=== PATIENT | male | born 1975 | race Caucasian/White ===

== ENCOUNTER 2021-06-24 21:07 | Inpatient (IN) ==
[2021-06-25] MEDS ORDERED: Lactated Ringers 1000 ml BAG 1,000 ML IV ONE ×2 (00:42→03:18)
[2021-06-25] MEDS ORDERED: Morphine 4 MG/ML VIAL (1 ml) IV ONE ×2 (01:12→02:56)
[2021-06-25] MEDS ORDERED: Ondansetron 4 mg VIAL 2 MG/ML 2 ml VIAL IV ONE (01:12)
[2021-06-25 02:02] LABS: Albumin 4.2 g/dL (3.2-5.2); Albumin/Globulin Ratio 1.4 (1-3); Calcium 8.9 mg/dL (8.6-10.3); Globulin 2.9 g/dL (2-4); Potassium 3.5 mmol/L (3.5-5.0); Total Bilirubin 1.2 mg/dL (0.2-1.0); Total Protein 7.1 g/dL (6.4-8.9)
[2021-06-25 02:12] LABS: ABS Lymphocytes 0.8 10^3/ul (1.0-4.8); ABS Monocytes 1.7 10^3/ul (0-0.8); Eosinophil % 0.1 %; Hematocrit 40 % (42-52); Hemoglobin 14.7 g/dL (14.0-18.0); Lymphocyte % 5.8 %; Mean Corpuscular HGB Conc 37 g/dL (31-36); Mean Corpuscular Hemoglobin 35 pg (27-31); Mean Corpuscular Volume 96 fL (80-94); Mean Platelet Volume 7.3 fL (7.4-10.4); Platelet Count 179 10^3/uL (150-450); Red Blood Count 4.21 10^6 /uL (4.18-5.48); Red Cell Distribution Width 13 % (10-15); White Blood Count 13.5 10^3/uL (3.5-10.8)
[2021-06-25 03:00] LABS: Calcium 8.9 mg/dL (8.6-10.3); Potassium 3.7 mmol/L (3.5-5.0)
[2021-06-25] MEDS ORDERED: Ondansetron 4 mg VIAL 2 MG/ML 2 ml VIAL IV PRN (04:12)
[2021-06-25 05:13] LABS: Rapid COVID-19 Molecular Undetected (Undetected)
[2021-06-25] MEDS: NS 0.9% w/ 20 Meq KCL 1000 ml 1,000 ML IV SCH ×2 (06:33→16:27)
[2021-06-25 06:58] LABS: Urine Appearance Clear; Urine Bilirubin Negative (Negative); Urine Blood Negative (Negative); Urine Color Colorless; Urine Glucose Negative (Negative); Urine Ketones Negative (Negative); Urine Nitrite Negative (Negative); Urine Protein Negative (Negative); Urine Specific Gravity 1.001 (1.002-1.030); Urine Urobilinogen Negative (Negative)
[2021-06-25 07:05] LABS: Calcium 8.9 mg/dL (8.6-10.3); Potassium 3.6 mmol/L (3.5-5.0)
[2021-06-25] MEDS ORDERED: LORazepam 2 mg VIAL 1 ml IV PUSH ONE (13:22)
[2021-06-25] MEDS ORDERED: Lorazepam PYXIS KEY PRN (13:22)
[2021-06-25] MEDS ORDERED: cefTRIAXone 2 GM ADDV.VIAL ONE (13:35)
[2021-06-25] MEDS ORDERED: Rocuronium 50 mg VIAL 10 mg/ml 5 ml VIAL (50 mg) ONE (14:18)
[2021-06-25] MEDS ORDERED: Propofol 10 MG/ML 20 ML BTL ONE (14:18)
[2021-06-25] MEDS ORDERED: Iohexol 180 (CONTRAST) 20 ML SDV IV ONE (14:28)
[2021-06-25] MEDS ORDERED: Dexamethasone IV 4 MG/ML VIAL 1 ml VIAL ONE (14:40)
[2021-06-25] MEDS ORDERED: Ondansetron 4 mg VIAL 2 MG/ML 2 ml VIAL ONE (14:40)
[2021-06-25] MEDS ORDERED: Iohexol 180 (CONTRAST) 10 ML SDV IV ONE (14:57)
[2021-06-25] MEDS ORDERED: Furosemide 20 mg/2 ml IV VIAL ONE (15:03)
[2021-06-25 17:27] LABS: Calcium 9.3 mg/dL (8.6-10.3); Magnesium 2.1 mg/dL (1.9-2.7)
[2021-06-25] MEDS ORDERED: Thiamine 100 MG/ML 2 ml VIAL (200 mg) IV ONE (17:58)
[2021-06-25] MEDS ORDERED: Thiamine IV 100 MG in NS 0.9% 50 ML Q24H IV ONE (19:00)
[2021-06-26 07:24] LABS: Magnesium 1.9 mg/dL (1.9-2.7); Phosphorus 2.1 mg/dL (2.5-5.0); Potassium 3.7 mmol/L (3.5-5.0)
[2021-06-26] MEDS ORDERED: Flu vaccine *QUAD* 2021-22* 0.5 ML SYRINGE IM ONE (09:00)
[2021-06-26 11:49] VITALS: BP 142/92
== END 2021-06-26 14:00 | disposition home or self-care (01) | DRG 446 ==
LOC: ED 21:07 → SUATTDRO 06-25 07:33 → EDHOLD 06-25 07:33 → SSU 06-25 10:26
PROVIDERS: ADMIT Internal Medicine; ATTEND Internal Medicine